=== PATIENT | male | born 1965 | race Two or more races ===

== ENCOUNTER 2024-12-26 11:11 | Inpatient (IN) | payer OTHER ==
[~2024-12-26] VITALS: Ht 160 cm; Wt 90.7 kg
[2024-12-26] MEDS ORDERED: DOXAZOSIN MESYLA2 MG PO (12:54)
[2024-12-26] MEDS ORDERED: KETOROLAC TROMETHAMINE 60 MG VIAL IM ONE ×2 (13:15→13:48)
[2024-12-26] MEDS ORDERED: NIFEDIPINE 10 MG CAPSULE PO ONE ×2 (13:15→13:48)
[2024-12-26 14:11] LABS: BASO % 0.6 % (0.1-1.2); EOS # 0.28 (0.04-0.54); EOS % 3.3 % (0.7-7.0); HEMOGLOBIN 14.4 g/dL (13.7-17.5); LYMPH # 1.81 (1.18-3.74); LYMPH % 21.7 % (19.3-53.1); MEAN CORPUSCULAR HEMOGLOBIN 29.6 pg (25.6-32.2); MONO # 0.82 (0.24-0.82); MONO % 9.8 % (4.7-12.5); NEUT # 5.38 (1.56-6.13); NEUT % 64.4 % (34.0-71.1); PLATELET COUNT 299 K/uL (163-369); RED BLOOD COUNT 4.86 M/uL (4.63-6.08); RED CELL DISTRIBUTION WIDTH 13.7 % (11.6-14.4)
[2024-12-26 14:40] LABS: ALBUMIN 3.8 gm/dL (3.4-5.0); BILIRUBIN TOTAL 0.52 mg/dL (0.3-1.2); CALCIUM 8.9 mg/dL (8.5-10.1); CREATININE SERUM 1.01 mg/dL (0.70-1.30); GFR 75.35; GLOBULINA 3.8 G/DL (2.4-3.5); POTASSIUM 3.79 mEq/L (3.5-5.1); TOTAL PROTEIN 7.6 gm/dL (6.4-8.2)
[2024-12-26 15:11] LABS: INR < 0.93; PROTHROMBIN TIME 10.2 SECONDS (9.0-11.5)
[2024-12-26] MEDS ORDERED: LABETALOL HCL 100 MG/20 ML ML ONE (19:45)
[2024-12-26] MEDS ORDERED: LABETALOL HCL 20MG/4ML SYRINGE IV ONE (19:45)
[2024-12-26] MEDS ORDERED: HYDROCORTISONE SODIUM SUCC/PF 250 MG VIAL IV ONE (20:45)
[2024-12-26] MEDS ORDERED: GENTAMICIN SULFATE 0.15 MG/DR DROPS 5ML OP ONE ×2 (21:05→21:15)
[2024-12-26] MEDS ORDERED: HYDROCORTISONE SODIUM SUCC/PF 250 MG VIAL ONE (21:08)
[2024-12-26] MEDS ORDERED: 0.9 % SODIUM CHLORIDE 1,000 ML IV SCH (22:00)
[2024-12-26] MEDS ORDERED: ATORVASTATIN CALCIUM 40 MG TABLET PO SCH (22:00)
[2024-12-26] MEDS ORDERED: NITROGLYCERIN IN 5 % DEXTROSE 250 ML IV SCH (22:00)
[2024-12-26] MEDS ORDERED: ASPIRIN 81 MG TAB.CHEW PO SCH (22:00)
[2024-12-26] MEDS ORDERED: FAMOTIDINE/PF 20 MG in 0.9 % SODIUM CHLORIDE 8 ML IV PUSH SCH (22:01)
[2024-12-27] VITALS (8 sets, daily range): BP systolic 121–157; BP diastolic 62–90; O2SAT 90–97
[2024-12-27] MEDS ORDERED: NITROGLYCERIN IN 5 % DEXTROSE 50 MG/250 ML BOTTLE IV ONE (00:08)
[2024-12-27] MEDS ORDERED: FAMOTIDINE/PF 20 MG/2 ML VIAL ONE (00:08)
[2024-12-27 00:35] LABS: URINE APPEARANCE Clear; URINE BILIRRUBIN Negative (NEGATIVE); URINE BLOOD Negative; URINE COLOR Yellow; URINE GLUCOSE Negative (NEGATIVE); URINE KETONE Negative (NEGATIVE); URINE LEUKOCYTE Negative; URINE NITRATE Negative; URINE PROTEIN Negative (NEGATIVE); URINE UROBILINOGEN 0.2 E.U./dl
[2024-12-27 00:42] LABS: URINE BACTERIA 1.2 uL (0.0-1933); URINE EPITHELIAL CELLS 0.3 uL (0.0-38.8); URINE RBC 0.4 uL (0.0-20.8); URINE WBC 0.4 uL (0.0-23.2)
[2024-12-27 08:00] LABS: CHOL HDL RATIO 4.5 (0-5.0); TSH 1.98 uIU/mL (0.358-3.74)
[2024-12-27] MEDS ORDERED: LOSARTAN POTASSIUM 25 MG TABLET PO SCH (09:00)
[2024-12-27] MEDS ORDERED: METOPROLOL SUCCINATE 25 MG TAB.SR.24H PO SCH (09:00)
[2024-12-27] MEDS ORDERED: NITROGLYCERIN IN 5 % DEXTROSE 250 ML IV SCH (10:00)
[2024-12-27] MEDS ORDERED: TAMSULOSIN HCL 0.4 MG CAP PO SCH (10:03)
[2024-12-27] MEDS ORDERED: ENALAPRILAT DIHYDRATE 1.25 MG/ML VIAL IV PRN (10:15)
[2024-12-28 01:00] VITALS: BP 136/87; O2SAT 90; O2SAT 94
[2024-12-28 05:00] VITALS: O2SAT 90
[2024-12-28 08:00] VITALS: BP 150/88; O2SAT 95
[2024-12-28] MEDS ORDERED: LOSARTAN POTASSIUM 50 MG TABLET PO SCH (09:00)
[2024-12-28 09:13] VITALS: O2SAT 94
== END 2024-12-28 13:45 | disposition home or self-care (01) | DRG 65 ==
LOC: ER 11:52 → SURG 23:04 → SEC-K 23:04 → SURG 12-27 02:30
PROVIDERS: General Practice; ADMIT Internal Medicine; ATTEND Internal Medicine
PROC: BW28ZZZ Computerized Tomography (CT Scan) of Head (ICD-10-PCS; principal; 2024-12-26)
PROC: B030ZZZ Magnetic Resonance Imaging (MRI) of Brain (ICD-10-PCS; 2024-12-26)
PROC: B345ZZZ Ultrasonography of Bilateral Common Carotid Arteries (ICD-10-PCS; 2024-12-26)
PROC: B246ZZZ Ultrasonography of Right and Left Heart (ICD-10-PCS; 2024-12-26)
PROC: 4A12X4Z Monitoring of Cardiac Electrical Activity, External Approach (ICD-10-PCS; 2024-12-27)
DX: I63.9 Cerebral infarction, unspecified (principal); G45.9 Transient cerebral ischemic attack, unspecified; I16.0 Hypertensive urgency
CPT/HCPCS: 70544

== ENCOUNTER 2025-06-19 09:36 | Emergency (ER) | payer OTHER ==
[~2025-06-19] VITALS: Ht 160 cm; Wt 99.8 kg
[~2025-06-19 09:36] MED LIST: DOXAZOSIN MESYLA2 MG PO
[2025-06-19] MEDS ORDERED: COZAAR100 MG (10:14)
[2025-06-19] MEDS ORDERED: KAPSPARGO SPRIN25 MG (10:15)
[2025-06-19] MEDS ORDERED: SODIUM CHLORIDE 0.45 % 500 ML IV SCH (10:45)
[2025-06-19] MEDS ORDERED: ENALAPRILAT DIHYDRATE 1.25 MG/ML VIAL IV ONE (10:45)
[2025-06-19] MEDS ORDERED: KETOROLAC TROMETHAMINE 30 MG VIAL IV ONE (10:45)
[2025-06-19] MEDS ORDERED: SODIUM CHLORIDE 0.45 % 500 ML IV ONE (10:45)
[2025-06-19] MEDS ORDERED: TAMSULOSIN HCL 0.4 MG CAP PO ONE (10:45)
[2025-06-19 11:30] LABS: BASO % 0.6 % (0.1-1.2); EOS # 0.14 (0.04-0.54); EOS % 2.1 % (0.7-7.0); LYMPH # 1.12 (1.18-3.74); LYMPH % 16.9 % (19.3-53.1); MEAN PLATELET VOLUME 10.70 fl (9.4-12.4); MONO # 0.43 (0.24-0.82); MONO % 6.5 % (4.7-12.5); NEUT # 4.87 (1.56-6.13); NEUT % 73.7 % (34.0-71.1); RED CELL DISTRIBUTION WIDTH 12.9 % (11.6-14.4)
[2025-06-19 11:43] LABS: ERYTHROCYTE SEDIMENTATION RATE 5 mm/hr (0-20); INR 0.94
[2025-06-19 12:15] LABS: URINE APPEARANCE Clear; URINE BILIRRUBIN Negative (NEGATIVE); URINE BLOOD Negative; URINE COLOR Yellow; URINE GLUCOSE Negative (NEGATIVE); URINE KETONE Negative (NEGATIVE); URINE LEUKOCYTE Negative; URINE NITRATE Negative; URINE PROTEIN Trace (NEGATIVE); URINE UROBILINOGEN 1.0 E.U./dl
[2025-06-19 12:18] LABS: ALT/SGPT 34.0 U/L (12-78); AST/SGOT 25.0 U/L (15-37); BILIRUBIN TOTAL 0.46 mg/dL (0.3-1.2); BUN CREA RATIO 21.0 (7.0-25.0); CREATININE SERUM 1.11 mg/dL (0.70-1.30); GFR 67.35; GLOBULINA 3.4 G/DL (2.4-3.5); GLUCOSE FASTING 109.0 mg/dL (65-100); OSMOLALITY SERUM 287.0 MOSM/KG (275-295)
[2025-06-19 12:19] LABS: URINE BACTERIA 15.6 uL (0.0-1933); URINE EPITHELIAL CELLS 1.6 uL (0.0-38.8); URINE RBC 18.4 uL (0.0-20.8); URINE WBC 15.3 uL (0.0-23.2)
[2025-06-19 12:38] LABS: URINE CAST 0.14 uL (0.0-1.40)
== END 2025-06-19 17:43 | disposition home or self-care (01) ==
LOC: ER 09:36
DX: R33.9 Retention of urine, unspecified (principal); N32.0 Bladder-neck obstruction; R10.20 Pelvic and perineal pain unspecified side; I10 Essential (primary) hypertension
CPT/HCPCS: 36415; 51702; 74177; 93005; Q9965

== ENCOUNTER → 2025-06-23 | Emergency (ER) | payer OTHER ==
[~2025-06-23] VITALS: Ht 160 cm; Wt 99.8 kg
[~2025-06-23] MED LIST changes: +0.9 % SODIUM CHLORIDE 1,000 ML IV ONE; +CEFTRIAXONE SODIUM 2,000 MG VIAL IV ONE; +CEFTRIAXONE SODIUM 2,000 MG VIAL ONE; +CEPHALEXIN500 MG PO; +COZAAR100 MG; +KAPSPARGO SPRIN25 MG
[2025-06-23 20:35] LABS: BASO % 0.5 % (0.1-1.2); EOS # 0.05 (0.04-0.54); EOS % 0.4 % (0.7-7.0); LYMPH # 0.76 (1.18-3.74); LYMPH % 6.1 % (19.3-53.1); MEAN PLATELET VOLUME 10.30 fl (9.4-12.4); MONO # 0.90 (0.24-0.82); MONO % 7.2 % (4.7-12.5); NEUT # 10.63 (1.56-6.13); NEUT % 85.5 % (34.0-71.1); RED CELL DISTRIBUTION WIDTH 12.7 % (11.6-14.4)
[2025-06-23 20:58] LABS: COVID-19 AG NEGATIVE (NEGATIVE)
[2025-06-23 21:18] LABS: ALT/SGPT 29.0 U/L (12-78); AST/SGOT 18.0 U/L (15-37); BILIRUBIN TOTAL 0.91 mg/dL (0.3-1.2); BUN CREA RATIO 19.0 (7.0-25.0); CREATININE SERUM 1.12 mg/dL (0.70-1.30); GFR 66.65; GLOBULINA 3.8 G/DL (2.4-3.5); GLUCOSE FASTING 110.0 mg/dL (65-100); OSMOLALITY SERUM 279.0 MOSM/KG (275-295)
[2025-06-23 21:22] LABS: PROSTATIC SPECIFIC ANTIGEN 19.4 NG/ML (0.010-4.00)
[2025-06-23 21:58] LABS: URINE APPEARANCE Turbid; URINE BILIRRUBIN Negative (NEGATIVE); URINE BLOOD Large; URINE COLOR Dark Yellow; URINE GLUCOSE Negative (NEGATIVE); URINE LEUKOCYTE Large; URINE NITRATE Positive; URINE UROBILINOGEN 0.2 E.U./dl
[2025-06-23 21:59] LABS: URINE CAST 1.54 uL (0.0-1.40); URINE EPITHELIAL CELLS 9.1 uL (0.0-38.8); URINE RBC 726.3 uL (0.0-20.8)
[2025-06-23 22:25] LABS: URINE BACTERIA > 9821.5 uL (0.0-1933); URINE CRYSTALS FEW /HPF; URINE KETONE 40 (NEGATIVE); URINE MUCUS SCANT; URINE PROTEIN 300 (NEGATIVE); URINE WBC > 5548.3 uL (0.0-23.2)
[2025-06-23 22:26] LABS: TYPE CELLS SQUAMOUS
== END | disposition home or self-care (01) ==
LOC: ER 18:26
PROVIDERS: General Practice
DX: N39.0 Urinary tract infection, site not specified (principal); Z97.8 Presence of other specified devices; R50.9 Fever, unspecified; R11.0 Nausea; R30.0 Dysuria; R33.8 Other retention of urine; Z20.822 Contact with and (suspected) exposure to COVID-19; I10 Essential (primary) hypertension